=== PATIENT | female | born 1970 | race African-American/Black ===

== ENCOUNTER 2016-12-21 08:18 | Emergency (ER) | payer MEDICARE, MEDICAID ==
[~2016-12-21] VITALS: Ht 167.6 cm; Wt 63.5 kg
[2016-12-21 08:32] VITALS: BP 150/98
[2016-12-21] MEDS ORDERED: KETOROLAC TROMETH 60MG/2ML VIAL IM ONE (09:00)
== END 2016-12-21 10:13 | disposition home or self-care (01) ==
LOC: ER 08:18
DX: D25.9 Leiomyoma of uterus, unspecified (principal); M54.5 Low back pain; V43.52XA Car driver injured in collision with other type car in traffic accident, initial encounter; Y93.89 Activity, other specified; Y92.89 Other specified places as the place of occurrence of the external cause; Y99.8 Other external cause status; M19.90 Unspecified osteoarthritis, unspecified site
CPT/HCPCS: 72131; 96372; 99284; J1885